=== PATIENT | female | born 1975 | race African-American/Black ===

== ENCOUNTER 2017-12-06 10:47 | Day surgery (SDC) | payer OTHER ==
[2017-12-06] MEDS ORDERED: PROPOFOL 200 MG/20 ML VIAL As Ordered (12:36)
[2017-12-06] MEDS ORDERED: LIDOCAINE 2% INJ 100 MG/5 ML SDV (FOR ANES.) As Ordered (12:36)
== END 2017-12-06 14:40 | disposition home or self-care (01) ==
LOC: M OPP 10:47
DX: Z12.11 Encounter for screening for malignant neoplasm of colon (principal); M54.2 Cervicalgia; K64.0 First degree hemorrhoids; G43.909 Migraine, unspecified, not intractable, without status migrainosus; Z79.899 Other long term (current) drug therapy; Z80.0 Family history of malignant neoplasm of digestive organs; Z86.010 Personal history of colon polyps; Z98.890 Other specified postprocedural states; Z87.19 Personal history of other diseases of the digestive system
CPT/HCPCS: 45378

== ENCOUNTER → 2020-01-15 | Outpatient (REF) | payer OTHER ==
[~2020-01-15] MED LIST: BOTO10VL IM; MAXA10TA15 PO; PHENERGAN PO
== END ==
LOC: M LAB REF 14:27
PROVIDERS: ATTEND Radiology Diagnostic Radiology
DX: N63.10 Unspecified lump in the right breast, unspecified quadrant (principal)

== ENCOUNTER → 2020-10-13 | Outpatient (CLI) | payer OTHER ==
--- NOTE | 2020-10-13 16:17 | REP ---
INDICATION: LT BREAST LUMP. Patient reports 2 new palpable lumps in the left breast for the last 3 months close to 1 another at the upper outer quadrant periareolar region. Patient is status post ultrasound-guided and stereotactically guided needle biopsies in the right breast in the last year both of which were benign. She reports 2 palpable lumps in the right breast which persist unchanged from that prior breast evaluation. COMPARISON: Comparison bilateral mammography is reviewed from [facility] dated January 15, 2020, January 02, 2020, December 06, 2019, November 28, 2018, and December 06, 2017. Comparison right breast sonography January 02, 2020 and January 15, 2020. TECHNIQUE: Bilateral CC and MLO) view(s) were taken. Skin markers were affixed to the skin at the site of the palpable lumps bilaterally, 2 on each side. Routine views are augmented by magnified focal spot-compression CC, mL, and true mediolateral views of the left breast. Bilateral 3D tomography was carried out. Targeted left breast sonography is performed. FINDINGS: Scattered fibroglandular elements are noted moderate in degree bilaterally. Circumscribed nodular opacities are seen in the region of the palpable lump in the left breast. the largest of these measures 1.8 cm in greatest diameter. There is also a 1.0 cm nodule in the upper outer quadrant of the left breast. There are dispersed microcalcifications which are non grouped in the left breast on magnified true mL view. The nodular density identified on recent mammography in the right breast and biopsied is no longer present mammographically. There are 2 marker clips in the right breast anterior 3rd as visualized on the most recent prior right breast imaging from 15 January 2020. Right breast is otherwise unremarkable mammographically. The Volpara volumetric breast density pattern is B. Targeted left breast sonography: The left breast is scanned in the region of the palpable lump which is approximately 12 o'clock position. There is a 2.2 x 0.9 x 1.7 cm simple cyst in this location which is felt to account for the palpable lump and the larger of the 2 mammographic densities. There are multiple smaller cysts seen adjacent to the lump on ultrasound images as well. this includes a septated cyst measuring 1 cm. This is felt to account to the other mammographic density. No suspicious sonographic features.. IMPRESSION: BI-RADS category 2 benign findings mammographically and sonographically. Multiple left breast cysts seen by ultrasound. This patient's Tyrer-Cuzick lifetime breast cancer risk assessment score is 8.3%. This mammogram was interpreted with the aid of an FDA-approved computer-aided detection system. The patient states she had a clinical breast exam in September of 2020. The patient letter being requested is M2. RECOMMENDATION: Repeat screening mammography recommended 1 year (for women over 40). Clinical follow-up regarding the palpable lump. <Electronically signed by Campos Chavez > 10/13/20 [id number]
== END ==
LOC: M WHC 12:59
PROVIDERS: ATTEND Family Medicine
DX: N60.02 Solitary cyst of left breast (principal); N63.22 Unspecified lump in the left breast, upper inner quadrant; N63.21 Unspecified lump in the left breast, upper outer quadrant
CPT/HCPCS: 76642; 77066; G0279

== ENCOUNTER → 2021-01-07 | Outpatient (CLI) | payer OTHER ==
[~2021-01-07] MED LIST changes: +LOSA25TA14 PO; +OMEP-218 PO; +RIZA10TA2 PO; +TRAZ-252 PO
[2021-01-07 12:28] VITALS: BP 148/86
--- NOTE | 2021-01-07 15:04 | REP ---
INDICATION: N63.10 LUMP OF R BREAST. COMPARISON: None TECHNIQUE: Real-time sonographic evaluation of right breast performed. FINDINGS: Request is made to evaluate the 2 o'clock region of the right breast for a possible biopsy clip. No biopsy clip is visualized sonographically at the 2 o'clock position of the right breast. IMPRESSION: No sonographic evidence of a biopsy clip at the 2 o'clock position of the right breast. RECOMMENDATION: None <Electronically signed by Antwon Yeung > 01/07/21 1500
--- NOTE | 2021-01-08 16:25 | ROOPDOC ---
[facility] Report Of Operation Report of Operation Date of the procedure:01/07/21 Diagnosis: Right breast palpable masses x 2 and left breast palpable mass Procedure:Ultrasound guided aspiration of Right/ breast cyst at 11:00, ultrasound guided attempted aspiration of the right breast lesion at 1:00 followed by ultrasound guided biopsy of this right lesion with clip placement, ultrasound guided aspiration of the left breast 12:00 and 1:00 cysts Proceduralist: Lasha Gross D.O. EBL: minimal Lidocaine 1% LOT [id number] Expiration: 08/2024 Sodium Bicarbonate 8.4% LOT [id number] Expiration: 04/2022 Hydromark clip LOT [id number] Expiration 05/2023 SHAPE: 4 Bx device: BARD [id number] x10 cm LOT [id number] Expiration 05/2023 Procedure details: Informed consent was obtained. The most common risk and possible complications including bleeding, hematoma, bruising, infection, injury to surrounding structures were explained to the patient and she expressed understanding. Patient was taken to the procedure room and placed on the bed in the supine po sition. Appropriate time out was done stating patients name, date of , and the procedure to be performed. Procedure was started on the right side. The right breast was prepped and draped in the usual fashion. The ultrasound was used to confirm the location of the palpable lesions at 11:00 and 1:00 in the periareolar area. 11:00 lesion appeared to be a simple cyst. The 1:00 lesion appeared to be also possibly cystic. Our attention was first focused on the right breast 1:00 lesion. Plain Lidocaine 1% and 8.4% sodium bicarbonate 10:1 mix was used to anesthetize the skin, and tissues along the anticipated aspiration tract. 18 G needle was used to aspirate lesion under ultrasound guidance. There was no return of fluid. Furthermore, there was a track created by the needle in the lesion which suggested a solid nature of the lesion. At this time, we proceeded with the aspiration of 11:00 lesion. Additional plain Lidocaine 1% and 8.4% sodium bicarbonate 10:1 mix was used to anesthetize the skin, and tissues along the anticipated aspiration tract. 18 G needle was used to aspirate 11:00 lesion under ultrasound guidance. 2 cc of serosanguinous fluid was returned and was sent for cytology. Cyst completely collapsed. Images were captured. Manual pressure over the cyst aspiration site and tract was held. No bleeding was noted upon removal of the pressure. Next, since the 1:00 lesion could not be aspirated, decision was made to procced with the biopsy, for which patient was previously consented. At the previously anesthetized site, a small skin incision was made with blade number 11. BARD Marquee 14G cannula with introducer ([id number]) was inserted through the incision and advanced under the ultrasound guidance to position immediately adjacent to the lesion. Next, the introducer was removed and BARD Marquee 14G biopsy device was places in the cannula. Pre-biopsy imaging, and post-biopsy imaging were captured. Five good core biopsies were taken at various levels of the lesion. Specimen was placed in formaldehyde, labeled with appropriate biopsy site and patients name, and sent to pathology for evaluation. Next, the biopsy device was withdrawn and a clip introducer was inserted into the biopsy site via the cannula. SHAPE 4 Hydromark clip was deployed under sonographic guidance. Post-clip placement image was captured. Manual pressure over the biopsy cavity and tract was held after the clip i ntroducer was withdrawn. No bleeding was noted upon removal of the pressure. At this time, our attention was turned toward the left breast. The left breast was prepped and draped in the usual fashion. The ultrasound was used to confirm the location of the palpable lesion at 12:00 which corresponded to 2 cystic structures at 12:00 and little more lateral to the other cyst - 1:00. Our attention was first focused on the left breast 1:00 cyst. Plain Lidocaine 1% and 8.4% sodium bicarbonate 10:1 mix was used to anesthetize the skin, and tissues along the anticipated aspiration tract. 18 G needle was used to aspirate lesion under ultrasound guidance. 2 cc of serosanguinous fluid was aspirated and sent for cytology. Cyst completely collapsed and the images were captured. Next, we moved on to aspirating the 12:00 lesion. Additional local anesthetic was injected to anesthetize the area. 18 G needle was used to aspirate lesion under ultrasound guidance. Minimal amount of serous fluid was aspirated from small cyst. This was discarded as it was felt to be physiological without suspicious features. Cyst completely collapsed and the images were captured. Upon completion of the procedure, patient no longer felt the right 11:00 lesion and left 12:00 lesion. The right breast 1:00 lesion was still felt by patient. Post-biopsy mammogram of the right breast was obtained and showed clip in expected position. Postprocedural dressing was placed. Patient tolerated procedure well. Discharge instructions were discussed with the patient and the patient expressed understanding. LASHA GROSS DO Jan 08, 2021 16:25
== END ==
LOC: M WHCPRO 07:10
PROVIDERS: ATTEND Surgery
DX: D24.1 Benign neoplasm of right breast (principal); D24.2 Benign neoplasm of left breast
CPT/HCPCS: 10005; 10006; 19083; 76642; 77065; 88173; 88305; 88341; 88342; G0279